=== PATIENT | female | born 1995 | race Caucasian/White ===

== ENCOUNTER 2022-02-13 20:26 | Emergency (ER) | payer OTHER ==
[~2022-02-13] VITALS: Ht 167.6 cm; Wt 63.5 kg
[2022-02-13] MEDS ORDERED: ALBUTEROL SULFATE 2.5 MG/3 ML NEBU NEB ONE ×2 (21:00→21:45)
[2022-02-13] MEDS ORDERED: IPRATROPIUM BROMIDE 0.5 MG/2.5 ML NEBU NEB ONE (21:00)
[2022-02-13] MEDS ORDERED: predniSONE 10 MG TABLET PO ONE (21:00)
[2022-02-13] MEDS ORDERED: PRED20TA PO (21:08)
[2022-02-13] MEDS ORDERED: ALBU8.5H8 IH (21:08)
[2022-02-13] MEDS ORDERED: NALO4SPR NS (21:08)
[2022-02-13] MEDS ORDERED: IPRATROPIUM BROMIDE 0.5 MG/2.5 ML NEBU ONE (21:13)
[2022-02-13] MEDS ORDERED: ALBUTEROL SULFATE 2.5 MG/ 0.5 ML NEBU ONE ×3 (21:14→23:08)
[2022-02-13] MEDS ORDERED: predniSONE 20 MG TABLET ONE (21:48)
--- NOTE | 2022-02-13 21:58 | NUR ---
RT at bedside administering breathing treatment, treatmentis to run over an hour per MD. pt resting calmly, vitals stable. NAD noted
[2022-02-13] MEDS ORDERED: AZIT250T13 PO (22:52)
[2022-02-13] MEDS ORDERED: ALBUTEROL SULFATE 2.5 MG/ 0.5 ML NEBU NEB ONE (23:00)
[2022-02-13] MEDS ORDERED: AZITHROMYCIN 250 MG TABLET PO ONE (23:00)
--- NOTE | 2022-02-14 01:36 | NUR ---
cleared for dc by , [facility] provided understanding verbalised. pt ambulated out of dept under her on power with NAD noted. vitals stable belongings acocunted for
[2022-02-14 01:39] VITALS: BP 123/67
== END 2022-02-14 01:39 | disposition home or self-care (01) ==
LOC: ER 20:33
DX: J45.901 Unspecified asthma with (acute) exacerbation (principal); R91.8 Other nonspecific abnormal finding of lung field; Z20.822 Contact with and (suspected) exposure to COVID-19; F17.210 Nicotine dependence, cigarettes, uncomplicated
CPT/HCPCS: 71045; 87426; 94644; 94645; 99285; 99406; J7512; A4663; J3590